=== PATIENT | male | born 1940 ===

== ENCOUNTER 2019-01-13 01:45 | Emergency (ER) | payer MEDICARE ==
[2019-01-13 01:46] VITALS: BMI 35.4
[2019-01-13 03:02] VITALS: O2SAT 97
[2019-01-13 04:02] LABS: BASO # 0.1 K/uL (0.0-0.2); BASO % 0.7 % (0.0-2.0); EOS # 0.3 K/uL (0.0-0.7); EOS % 2.6 % (0.0-4.0); HEMOGLOBIN 13.4 g/dL (12.0-18.0); LYMPH # 1.8 K/uL (1.0-4.3); LYMPH % 15.2 % (20.0-40.0); MEAN CELL VOLUME 90.9 fl (80.0-94.0); MEAN CORPUSCULAR HEMOGLOBIN 30.8 pg (27.0-31.0); MEAN CORPUSCULAR HGB CONC 33.9 g/dL (33.0-37.0); MEAN PLATELET VOLUME 8.4 fl (7.2-11.7); MONO # 0.9 K/uL (0.0-0.8); MONO % 7.3 % (0.0-10.0); NEUT # 8.9 K/uL (1.8-7.0); NEUT % 74.2 % (50.0-75.0); RBC 4.34 Mil/uL (4.40-5.90); RED CELL DISTRIBUTION WIDTH 13.7 % (11.5-14.5)
[2019-01-13] MEDS ORDERED: Alum-Mag Hydrox-Simethicone Susp (30 mL) PO STA (04:15)
[2019-01-13 04:16] LABS: ALB/GLOB RATIO 1.3 (1.0-2.1); ALBUMIN 4.4 g/dL (3.5-5.0); ALT/SGPT 29 U/L (21-72); AST/SGOT 30 U/L (17-59); BLOOD UREA NITROGEN 19 mg/dl (9-20); GFR NON-AFRICAN AMERICAN > 60
--- NOTE | 2019-01-13 04:38 | ED PDOC ---
Lower Extremity Pain/Injury Time Seen by Provider: 01/13/19 02:17 Chief Complaint (Nursing): Lower Extremity Problem/Injury Chief Complaint (Provider): Lower Extremity Problem/Injury History Per: Patient History/Exam Limitations: no limitations Onset/Duration Of Symptoms: Days (x 2) Current Symptoms Are (Timing): Still Present Additional Complaint(s): 78 year old male with a history of dyslipidemia, HTN, high cholesterol and DM presents to the ED for evaluation of left buttock pain and ecchymosis for two days. Two days ago, patient received a massage treatment during his physiotherapy session and since is experiencing soreness to the left buttock and leg. He also reports noticing a large area of purplish bruising to the buttock. On arrival to the ED, he developed some heartburn, for which he usually takes Mylanta. Denies fever, nausea, vomiting, diarrhea. PMD: Dr Kei Puentes Past Medical History Reviewed: Historical Data, Nursing Documentation, Vital Signs Vital Signs: Last Vital Signs Temp 97.9 F 01/13/19 02:54 Pulse 81 01/13/19 02:54 Resp 16 01/13/19 02:54 BP 156/77 H 01/13/19 02:54 Pulse Ox 97 01/13/19 02:54 - Medical History PMH: Arthritis, CAD (stent x2; Cardio Dr Vyas), Diabetes, HTN, Hypercholesterolemia, Hypothyroidism Denies: Asthma, Chronic Kidney Disease - Surgical History Surgical History: Coronary Stent (x2) - Family History Family History: States: Unknown Family Hx - Home Medications Home Medications: Ambulatory Orders Medication Instructions Recorded Aspirin [Aspirin EC] 81 mg PO DAILY 11/18/14 Atorvastatin [Lipitor] 40 mg PO QPM 11/18/14 Valsartan/Hydrochlorothiazide 1 tab PO DAILY 11/18/14 [Valsartan-Hctz 320-12.5 mg Tab] Nitroglycerin [Nitrostat] 0.4 mg SL Q5MIN PRN 11/03/16 metFORMIN [glucOPHAGE] 850 mg PO BID 11/03/16 Cyclobenzaprine [Cyclobenzaprine 10 mg PO TID PRN #15 tab 01/13/19 HCl] - Allergies Allergies/Adverse Reactions: Allergies Allergy/AdvReac Type Severity Reaction Status Date / Time No Known Allergies Allergy Verified 11/03/16 11:50 Review of Systems ROS Statement: Except As Marked, All Systems Reviewed And Found Negative Constitutional: Negative for: Fever, Chills Gastrointestinal: Negative for: Nausea, Vomiting, Diarrhea Musculoskeletal: Positive for: Leg Pain (bruising to the left leg and buttock) Physical Exam - Reviewed Nursing Documentation Reviewed: Yes Vital Signs Reviewed: Yes - Physical Exam Appears: Positive for: No Acute Distress Head Exam: Positive for: ATRAUMATIC, NORMAL INSPECTION, NORMOCEPHALIC Skin: Positive for: Normal Color, Warm, Dry Eye Exam: Positive for: EOMI, Normal appearance, PERRL Neck: Positive for: Normal, Painless ROM, Supple Cardiovascular/Chest: Positive for: Regular Rate, Rhythm. Negative for: Murmur Respiratory: Positive for: Normal Breath Sounds. Negative for: Respiratory Distress Gastrointestinal/Abdominal: Positive for: Normal Exam, Soft. Negative for: Tenderness Extremity: Positive for: Normal ROM (ambulates easily), Tenderness (mild; left), Other Neurologic/Psych: Positive for: Alert, Oriented. Negative for: Motor/Sensory Deficits - Laboratory Results Result Diagrams: 01/13/19 03:50 01/13/19 03:50 Lab Results: Troponin I < 0.0120 ng/mL (0.00-0.120) 01/13/19 03:50 Total Bilirubin 0.5 mg/dl (0.2-1.3) 01/13/19 03:50 AST 30 U/L (17-59) 01/13/19 03:50 ALT 29 U/L (21-72) 01/13/19 03:50 Alkaline Phosphatase 64 U/L (38-126) 01/13/19 03:50 Total Protein 7.8 G/DL (6.3-8.2) 01/13/19 03:50 Albumin 4.4 g/dL (3.5-5.0) 01/13/19 03:50 Globulin 3.4 gm/dL (2.2-3.9) 01/13/19 03:50 Albumin/Globulin Ratio 1.3 (1.0-2.1) 01/13/19 03:50 - ECG O2 Sat by Pulse Oximetry: 97 (RA) Pulse Ox Interpretation: Normal Medical Decision Making Medical Decision Makin:40 Impression: Initial Plan: --CBC --CMP --CCPK --Lipase --PTT --PT --Maalox 30 ml PO --Pepvid 20 mg PO --Toradol 15 mg IM --NS IV 05:20 labs reviewed and reveal no clinically significant abnormalities. Patient reports improvement of symptoms. Diagnosis is ecchymosis of the left buttock. Advised to not undergo any aggressive massage treatments and to inform his phy sical therapist. Scribe Attestation: Documented by Isabel Hendrix acting as a scribe for Iban Pierre MD Provider Scribe Attestation: All medical record entries made by the Scribe were at my direction and personally dictated by me. I have reviewed the chart and agree that the record accurately reflects my personal performance of the history, physical exam, medical decision making, and the department course for this patient. I have also personally directed, reviewed, and agree with the discharge instructions and disposition. Disposition - Clinical Impression Clinical Impression: Traumatic ecchymosis of buttock - Patient ED Disposition Is Patient to be Admitted: No - Disposition Disposition: Routine/Home Disposition Time: 05:20 Condition: STABLE Prescriptions: Cyclobenzaprine [Cyclobenzaprine HCl] 10 mg PO TID PRN #15 tab PRN Reason: Muscle Pain Instructions: Taking Care of Bruises Forms: [employer] (Lao) Print Language: WELSH
[2019-01-13] MEDS ORDERED: Alum-Mag Hydrox-Simethicone Susp (30 mL) ONE (04:41)
[2019-01-13 05:17] LABS: INR 1.2; PROTHROMBIN TIME 14.1 Seconds (9.8-13.1)
[2019-01-13 05:19] LABS: PARTIAL THROMBOPLASTIN TIME 23.6 Seconds (25.6-37.1)
[2019-01-13 05:45] VITALS: BP 132/69; PULSE 71; RESP 18; TEMP 98.3
== END 2019-01-13 05:45 | disposition home or self-care (01) ==
LOC: H.ER 01:45
DX: S30.0XXA Contusion of lower back and pelvis, initial encounter (principal); Z95.5 Presence of coronary angioplasty implant and graft; E11.9 Type 2 diabetes mellitus without complications; I10 Essential (primary) hypertension; Z79.84 Long term (current) use of oral hypoglycemic drugs; Z79.82 Long term (current) use of aspirin; X58.XXXA Exposure to other specified factors, initial encounter
CPT/HCPCS: 80053; 82550; 82948; 84484; 85025; 85610; 85730; 96374; 96375; 99284; J1885

== ENCOUNTER 2019-02-05 11:54 | Emergency (ER) | payer MEDICARE ==
[2019-02-05 11:58] VITALS: BMI 33.3
[2019-02-05 12:00] VITALS: O2SAT 98
[2019-02-05 14:00] LABS: BASO # 0.1 K/uL (0.0-0.2); EOS # 0.3 K/uL (0.0-0.7); EOS % 3.6 % (0.0-4.0); HEMOGLOBIN 12.5 g/dL (12.0-18.0); LYMPH # 1.5 K/uL (1.0-4.3); LYMPH % 15.9 % (20.0-40.0); MEAN CELL VOLUME 91.6 fl (80.0-94.0); MEAN CORPUSCULAR HEMOGLOBIN 31.2 pg (27.0-31.0); MEAN PLATELET VOLUME 7.9 fl (7.2-11.7); MONO # 0.7 K/uL (0.0-0.8); MONO % 8.1 % (0.0-10.0); NEUT # 6.5 K/uL (1.8-7.0); NEUT % 71.4 % (50.0-75.0); NRBC % 0.1 % (0.0-0.0); RBC 4.02 Mil/uL (4.40-5.90); RED CELL DISTRIBUTION WIDTH 14.4 % (11.5-14.5); WHITE BLOOD COUNT 9.2 K/uL (4.8-10.8)
[2019-02-05 14:05] LABS: INR 1.1; PROTHROMBIN TIME 12.2 Seconds (9.8-13.1)
[2019-02-05 14:14] LABS: ALB/GLOB RATIO 1.2 (1.0-2.1); ALBUMIN 4.3 g/dL (3.5-5.0); ALT/SGPT 33 U/L (21-72); AST/SGOT 29 U/L (17-59); BLOOD UREA NITROGEN 17 mg/dl (9-20); CALCIUM 9.8 mg/dL (8.4-10.2); GFR NON-AFRICAN AMERICAN > 60
--- NOTE | 2019-02-05 14:20 | ED PDOC ---
Lower Extremity Pain/Injury Time Seen by Provider: 02/05/19 13:00 Chief Complaint (Nursing): Abnormal Skin Integrity Chief Complaint (Provider): Abnormal Skin Integrity History Per: Patient History/Exam Limitations: no limitations Onset/Duration Of Symptoms: Days (x1 week) Current Symptoms Are (Timing): Still Present Additional Complaint(s): Patient is a 69 y/o male with a PMHx of HTN, hypercholesterolemia, hypothyroidism, arthritis, CAD, and diabetes who presents to the ED for evaluation of a rash in LLE for one week. Patient was diagnosed by PCP with hamstring injury by MRI. Patient complains of pain and swelling and vasculitis rash on LLE. Patient denies chest pain, shortness of breath, and fever. Of note, patient has been off Aspirin and Plavix for the past week. PCP: Dr. Kei Puentes Past Medical History Vital Signs: Last Vital Signs Temp 98.1 F 02/05/19 12:00 Pulse 92 H 02/05/19 12:00 Resp 20 02/05/19 12:00 BP 165/83 H 02/05/19 12:00 Pulse Ox 98 02/05/19 12:00 - Medical History PMH: Arthritis, CAD (stent x2; Cardio Dr Vyas), Diabetes, HTN, Hypercholesterolemia, Hypothyroidism Denies: Asthma, Chronic Kidney Disease - Surgical History Surgical History: Coronary Stent (x2) - Family History Family History: States: Unknown Family Hx - Social History Current smoker - smoking cessation education provided: No Ex-Smoker (has not smoked in the last 12 months): No Alcohol: None Drugs: Denies - Home Medications Home Medications: Ambulatory Orders Medication Instructions Recorded Aspirin [Aspirin EC] 81 mg PO DAILY 11/18/14 Atorvastatin [Lipitor] 40 mg PO QPM 11/18/14 Valsartan/Hydrochlorothiazide 1 tab PO DAILY 11/18/14 [Valsartan-Hctz 320-12.5 mg Tab] Nitroglycerin [Nitrostat] 0.4 mg SL Q5MIN PRN 11/03/16 metFORMIN [glucOPHAGE] 850 mg PO BID 11/03/16 Cyclobenzaprine [Cyclobenzaprine 10 mg PO TID PRN #15 tab 01/13/19 HCl] - Allergies Allergies/Adverse Reactions: Allergies Allergy/AdvReac Type Severity Reaction Status Date / Time No Known Allergies Allergy Verified 02/05/19 12:05 Review of Systems ROS Statement: Except As Marked, All Systems Reviewed And Found Negative Constitutional: Negative for: Fever Cardiovascular: Negative for: Chest Pain Respiratory: Negative for: Shortness of Breath Musculoskeletal: Positive for: Leg Pain (and swelling on left lower leg) Skin: Positive for: Rash (vasculitic) Physical Exam - Reviewed Nursing Documentation Reviewed: Yes Vital Signs Reviewed: Yes - Physical Exam Appears: Positive for: No Acute Distress Head Exam: Positive for: ATRAUMATIC, NORMAL INSPECTION, NORMOCEPHALIC Skin: Positive for: Warm (and tense left lower leg) Eye Exam: Positive for: EOMI, Normal appearance, PERRL ENT: Positive for: Normal ENT Inspection Neck: Positive for: Normal, Painless ROM, Supple Cardiovascular/Chest: Positive for: Regular Rate, Rhythm. Negative for: Murmur Respiratory: Positive for: Normal Breath Sounds. Negative for: Respiratory Distress Gastrointestinal/Abdominal: Positive for: Normal Exam Extremity: Positive for: Normal ROM, Pedal Edema, Capillary Refill (less than 2 s), Swelling (tense), Other (vasculitic rash, non-blanching, diffuse on left lower leg and calf; neurovascularly intact). Negative for: Deformity Neurological/Psych: Positive for: Alert, Oriented - Laboratory Results Result Diagrams: 02/05/19 13:56 02/05/19 13:56 Lab Results: PT 12.2 Seconds (9.8-13.1) 02/05/19 13:56 INR 1.1 02/05/19 13:56 Total Bilirubin 0.7 mg/dl (0.2-1.3) 02/05/19 13:56 AST 29 U/L (17-59) 02/05/19 13:56 ALT 33 U/L (21-72) 02/05/19 13:56 Alkaline Phosphatase 69 U/L (38-126) 02/05/19 13:56 Total Protein 7.8 G/DL (6.3-8.2) 02/05/19 13:56 Albumin 4.3 g/dL (3.5-5.0) 02/05/19 13:56 Globulin 3.5 gm/dL (2.2-3.9) 02/05/19 13:56 Albumin/Globulin Ratio 1.2 (1.0-2.1) 02/05/19 13:56 - ECG O2 Sat by Pulse Oximetry: 98 (RA) Pulse Ox Interpretation: Normal Medical Decision Making Medical Decision Making: Time: 1329 Impression: left leg rash, appears to be vasculitis. r/o DVT, arterial blockage, and compartment syndrome Plan: Podiatry was called. They will see the patient. CMP CPK CBC Prothrombin Time Duplex Lower Extrm Artr Left [US] Duplex Lower Extrm Vein Left [uS] Duplex Uper Extrm Vein Left [US] --------- -------- Scribe Attestation: Documented by Malik Stover, acting as a scribe for Viviana Olmedo MD. Provider Scribe Attestation: All medical record entries made by the Scribe were at my direction and personally dictated by me. I have reviewed the chart and agree that the record accurately reflects my personal performance of the history, physical exam, medical decision making, and the department course for this patient. I have also personally directed, reviewed, and agree with the discharge instructions and disposition. Disposition - Clinical Impression Clinical Impression: Rash - Patient ED Disposition Is Patient to be Admitted: Yes Counseled Patient/Family Regarding: Studies Performed, Diagnosis - Disposition Disposition: Transfer of Care Disposition Time: 16:00 Condition: STABLE Forms: [employer] (Israeli) Patient Signed Over To: Sharon Cutler
--- NOTE | 2019-02-05 15:42 | ED PDOC ---
- Laboratory Results Result Diagrams: 02/05/19 13:56 02/05/19 13:56 Lab Results: PT 12.2 Seconds (9.8-13.1) 02/05/19 13:56 INR 1.1 02/05/19 13:56 Total Bilirubin 0.7 mg/dl (0.2-1.3) 02/05/19 13:56 AST 29 U/L (17-59) 02/05/19 13:56 ALT 33 U/L (21-72) 02/05/19 13:56 Alkaline Phosphatase 69 U/L (38-126) 02/05/19 13:56 Total Protein 7.8 G/DL (6.3-8.2) 02/05/19 13:56 Albumin 4.3 g/dL (3.5-5.0) 02/05/19 13:56 Globulin 3.5 gm/dL (2.2-3.9) 02/05/19 13:56 Albumin/Globulin Ratio 1.2 (1.0-2.1) 02/05/19 13:56 <Viviana Olmedo Y - Last Filed: 02/05/19 16:22> - Laboratory Results Result Diagrams: 02/05/19 13:56 02/05/19 13:56 Lab Results: PT 12.2 Seconds (9.8-13.1) 02/05/19 13:56 INR 1.1 02/05/19 13:56 Total Bilirubin 0.7 mg/dl (0.2-1.3) 02/05/19 13:56 AST 29 U/L (17-59) 02/05/19 13:56 ALT 33 U/L (21-72) 02/05/19 13:56 Alkaline Phosphatase 69 U/L (38-126) 02/05/19 13:56 Total Protein 7.8 G/DL (6.3-8.2) 02/05/19 13:56 Albumin 4.3 g/dL (3.5-5.0) 02/05/19 13:56 Globulin 3.5 gm/dL (2.2-3.9) 02/05/19 13:56 Albumin/Globulin Ratio 1.2 (1.0-2.1) 02/05/19 13:56 - ECG O2 Sat by Pulse Oximetry: 98 (RA) Pulse Ox Interpretation: Normal <Sharon Cutler - Last Filed: 02/07/19 09:27> Medical Decision Making Medical Decision Making: Time: 1600 Patient being endorsed to provider from Viviana Olmedo MD. Patient pending workup and podiatry consult. Reassess patient. Time: 1705 CPK normal. Patient is in no acute distress with minimal tenderness to palpation on leg. No paralysis or paresthesia. Podiatry evaluated pt and cleared for discharge. US negative for acute findings. DW pt and family findings and plan of care. Pt eager to go home. Scribe Attestation: Documented by Malik Stover, acting as a scribe for Sharon Cutler MD. Provider Scribe Attestation: All medical record entries made by the Scribe were at my direction and personally dictated by me. I have reviewed the chart and agree that the record accurately reflects my personal performance of the history, physical exam, medical decision making, and the department course for this patient. I have also personally directed, reviewed, and agree with the discharge instructions and disposition. <Sharon Cutler - Last Filed: 02/07/19 09:27> Disposition <Viviana Olmedo - Last Filed: 02/05/19 16:22> - POA Present On Arrival: None - Disposition Disposition: Routine/Home Disposition Time: 17:00 <Sharon Cutler - Last Filed: 02/07/19 09:27> - Clinical Impression Clinical Impression: Rash, Hamstring injury - Disposition Referrals: Kei Puentes MD [Staff Provider] - 02/06/19 Condition: STABLE Instructions: Skin Rash (DC), Hamstring Injury Print Language: DJIBOUTIAN
--- NOTE | 2019-02-05 17:20 | US ---
Left lower extremity ultrasound. Indication: left leg swelling Technique: Duplex ultrasound evaluation of the left lower extremity Comparison: None available Findings: There is normal flow, compressibility, and augmentation of the left common femoral, femoral, and popliteal veins. The left posterior tibial vein appears patent. Impression: No evidence of deep venous thrombosis in the left lower extremity.
[2019-02-05 17:26] VITALS: BP 150/77; PULSE 88; RESP 16; TEMP 98
--- NOTE | 2019-02-06 07:41 | CP.PCM.CON ---
History of Present Illness - History of Present Illness History of Present Illness: Podiatry Consult Note: 69 year old male patient, with PMHx of HTN, HLD, Hypothyroidism, CAD, DM, seen and evaluated for LLE ecchymosis. Patient states that he was sent in by his PCP after the brusing had not resolved. Patient states that he participates in weekly physical therapy sessions but last week he went to the session and felt it hurt his left side. Immediately after the session he had pain beginning from his glutes down to his toes. The next day he developed bruising from his glutes to his foot. He showed his PCP who immediately stopped the ASA and Plavix the patient was taking and sent to the ED for further evaluation. At this time the patient reports minimal pain and states that the bruising and pain have decrease d significantly. He has not needed to take any pain medication for the pain. Denies nausea/vomiting/fever/shortness of breath. PMHx: as above ALL: NKDA Past Patient History - Past Medical History & Family History Past Medical History?: Yes - Past Social History Alcohol: None Drugs: Denies - CARDIAC Hx Hypercholesterolemia: Yes Hx Hypertension: Yes - PULMONARY Hx Asthma: No - NEUROLOGICAL Hx Neurological Disorder: No - HEENT Hx HEENT Problems: No - RENAL Hx Chronic Kidney Disease: No - ENDOCRINE/METABOLIC Hx Hypothyroidism: Yes - HEMATOLOGICAL/ONCOLOGICAL Hx Blood Disorders: No Hx Blood Transfusions: No - INTEGUMENTARY Hx Dermatological Problems: No - MUSCULOSKELETAL/RHEUMATOLOGICAL Hx Arthritis: Yes - GASTROINTESTINAL Hx Constipation: Yes Hx Gastroesophageal Reflux: Yes - GENITOURINARY/GYNECOLOGICAL Hx Genitourinary Disorders: No - PSYCHIATRIC Hx Psychophysiologic Disorder: No Hx Substance Use: No - SURGICAL HISTORY Hx Coronary Stent: Yes (x2) - ANESTHESIA Hx Anesthesia: Yes Hx Anesthesia Reactions: No Hx Malignant Hyperthermia: No Meds Allergies/Adverse Reactions: Allergies Allergy/AdvReac Type Severity Reaction Status Date / Time No Known Allergies Allergy Verified 02/05/19 12:05 Physical Exam - Constitutional Appears: Non-toxic, No Acute Distress - Head Exam Head Exam: ATRAUMATIC, NORMOCEPHALIC - Extremities Exam Additional comments: LLE focused exam Vascular: DP/PT 2/4, CFT < 3 seconds, TG warm to warm, no changes in temperature compared to R leg, no edema appreciated Ortho: No pain with palpation of L lower extremity, mild tenderness to dorsal aspect of foot over current ecchymosis, MMT 5/5 in all compartments, no pain with calf compression, no pain with AROM or PROM, patient able to wiggle toes without difficulty or pain Neuro: Gross and protective sensation intact, no paresthesias or paralysis Derm: Ecchymotic changes to skin beginning from gluteal region to digits in a diffuse pattern, no open lesions, no erythema, no clinical signs of infection - Neurological Exam Neurological exam: Alert, Oriented x3 - Psychiatric Exam Psychiatric exam: Normal Affect, Normal Mood Results - Vital Signs Recent Vital Signs: Last Vital Signs Temp 98.0 F 02/05/19 17:25 Pulse 88 02/05/19 17:25 Resp 16 02/05/19 17:25 BP 150/77 02/05/19 17:25 Pulse Ox 98 02/05/19 17:25 - Labs Result Diagrams: 02/05/19 13:56 02/05/19 13:56 Labs: Laboratory Results - last 24 hr 02/05/19 02/05/19 02/05/19 13:56 13:56 13:56 WBC 9.2 RBC 4.02 L Hgb 12.5 Hct 36.9 MCV 91.6 MCH 31.2 H MCHC 34.0 RDW 14.4 Plt Count 356 MPV 7.9 Neut % (Auto) 71.4 Lymph % (Auto) 15.9 L [place] % (Auto) 8.1 Eos % (Auto) 3.6 Baso % (Auto) 1.0 Neut # (Auto) 6.5 Lymph # (Auto) 1.5 [place] # (Auto) 0.7 Eos # (Auto) 0.3 Baso # (Auto) 0.1 PT 12.2 INR 1.1 Sodium 139 Potassium 4.4 Chloride 99 Carbon Dioxide 30 Anion Gap 14 BUN 17 Creatinine 1.1 Est GFR ( Amer) > 60 Est GFR (Non-Af Amer) > 60 Random Glucose 125 H Calcium 9.8 Total Bilirubin 0.7 AST 29 ALT 33 Alkaline Phosphatase 69 Total Creatine Kinase Total Protein 7.8 Albumin 4.3 Globulin 3.5 Albumin/Globulin Ratio 1.2 02/05/19 16:23 WBC RBC Hgb Hct MCV MCH MCHC RDW Plt Count MPV Neut % (Auto) Lymph % (Auto) [place] % (Auto) Eos % (Auto) Baso % (Auto) Neut # (Auto) Lymph # (Auto) [place] # (Auto) Eos # (Auto) Baso # (Auto) PT INR Sodium Potassium Chloride Carbon Dioxide Anion Gap BUN Creatinine Est GFR ( Amer) Est GFR (Non-Af Amer) Random Glucose Calcium Total Bilirubin AST ALT Alkaline Phosphatase Total Creatine Kinase 109 Total Protein Albumin Globulin Albumin/Globulin Ratio Assessment & Plan - Assessment and Plan (Free Text) Assessment: 69 year old male patient, with PMHx of HTN, HLD, Hypothyroidism, CAD, DM, seen and evaluated for LLE ecchymosis; r/o vasculitis Plan: Patient seen and evaluated Discussed patient in detail with Dr. Oneill VSS, WBC 9.2, CPK WNL LE US; no evidence of DVT Patient encouraged to return to the ED if any signs of symptoms get worse Thank you for the consult - Date & Time Date: 02/06/19 Time: 07:41
--- NOTE | 2019-02-07 12:24 | US ---
Date of service: 02/05/2019 PROCEDURE: Duplex ultrasound of the left lower extremity arteries. HISTORY: leg swelling and pain COMPARISON: None available. TECHNIQUE: Grayscale and duplex Doppler evaluation of the left common femoral, superficial femoral, popliteal, posterior tibial and dorsalis pedis arteries was performed.. FINDINGS: COMMON FEMORAL ARTERY: Patent. Maximal flow velocity of 137.9 cm/s. SUPERFICIAL FEMORAL ARTERY:Patent. Maximal flow velocity of 101.7 cm/s. POPLITEAL ARTERY:Patent. Maximal flow velocity of 78.2 cm/s. POSTERIOR TIBIAL ARTERY: Patent. Maximal flow velocity of 41.2 cm/s. DORSALIS PEDIS ARTERY: Patent. Maximal flow velocity of 57.4 cm/s. OTHER FINDINGS: None. IMPRESSION: Normal Duplex Doppler of the left lower extremity arteries.
== END 2019-02-05 17:26 | disposition home or self-care (01) ==
LOC: H.ER 11:54
DX: R21 Rash and other nonspecific skin eruption (principal); E11.9 Type 2 diabetes mellitus without complications; I10 Essential (primary) hypertension; Z79.84 Long term (current) use of oral hypoglycemic drugs; Z87.891 Personal history of nicotine dependence; Z79.82 Long term (current) use of aspirin; Z95.5 Presence of coronary angioplasty implant and graft; Z79.02 Long term (current) use of antithrombotics/antiplatelets